=== PATIENT | male | born 1960 | race Caucasian/White ===

== ENCOUNTER 2016-12-16 15:51 | Emergency (ER) | payer MEDICAID ==
[~2016-12-16] VITALS: Ht 185.4 cm; Wt 208.7 kg
[~2016-12-16 15:51] MED LIST: ALLA266C2 TP; AMMO385C4 TP; BISM525O10 PO; BLOO-129 IN; BUPR300T54 PO; INSU100V7 SQ; LISI10TA5 PO; METF10002 PO; METO-304 PO; Pantoprazole Sodium PO; RIFA300C4 PO; SILV25CR5 TP; SITA100T PO; [UNRECOGNIZED DRUG - CODE] PO
[2016-12-16] MEDS ORDERED: ASPI81TA2 PO (17:29)
[2016-12-16] MEDS ORDERED: METF500T4 PO (17:29)
[2016-12-16] MEDS ORDERED: LORA10TA7 PO (17:29)
[2016-12-16] MEDS ORDERED: LISI40TA4 PO (17:29)
[2016-12-16] MEDS ORDERED: APIX5TAB PO (17:29)
[2016-12-16] MEDS ORDERED: LIRA0.6P SQ (17:29)
[2016-12-16] MEDS ORDERED: METO-302 PO (17:29)
[2016-12-16] MEDS ORDERED: EMPA25TA PO (17:30)
[2016-12-16 18:45] VITALS: BP 142/86
== END 2016-12-16 18:49 | disposition home or self-care (01) ==
LOC: ER 15:54
DX: R60.0 Localized edema (principal); E66.01 Morbid (severe) obesity due to excess calories; I10 Essential (primary) hypertension; E11.9 Type 2 diabetes mellitus without complications
CPT/HCPCS: 93970-TC; A4606; Z7610

== ENCOUNTER 2017-11-13 16:26 | Inpatient (IN) | payer MEDICAID ==
[~2017-11-13] VITALS: Ht 188 cm; Wt 224.5 kg
[~2017-11-13 16:26] MED LIST changes: -ALLA266C2 TP; -AMMO385C4 TP; +APIX5TAB PO; +ASPI-1169 PO; -BISM525O10 PO; +EMPA25TA PO; +LIRA0.6P SQ; -LISI10TA5 PO; +LISI40TA4 PO; +LORA10TA7 PO; -METF10002 PO; +METF500T4 PO; -METO-304 PO; +METO-356 PO; -Pantoprazole Sodium PO; -RIFA300C4 PO; -SILV25CR5 TP; -SITA100T PO; -[UNRECOGNIZED DRUG - CODE] PO
[2017-11-13 17:00] LABS: BASOPHILS # (AUTO) 0.1 /CMM (0.0-0.2); BASOPHILS % (AUTO) 0.9 % (0.0-2.0); EOSINOPHILS # (AUTO) 0.4 /CMM (0.0-0.7); EOSINOPHILS % (AUTO) 3.5 % (0.0-6.0); HEMATOCRIT 34 % (39-51); HEMOGLOBIN 10.8 g/dL (13.5-17.5); LYMPHOCYTES # (AUTO) 1.8 /CMM (0.8-4.8); MEAN CORPUSCULAR HEMOGLOBIN 25 PG (26.0-33.0); MEAN CORPUSCULAR HGB CONC 32 g/dl (31.0-36.0); MEAN CORPUSCULAR VOLUME 79 fL (80-96); MONOCYTES # (AUTO) 1.5 /CMM (0.1-1.30); MONOCYTES % (AUTO) 12.2 % (2.0-12.0); NEUTROPHILS # (AUTO) 8.7 /CMM (1.8-8.9); NEUTROPHILS % (AUTO) 69.4 % (43.0-81.0); PLATELET COUNT (AUTO) 388 /CMM (150-450); RDW COEFFICIENT OF VARIATION 16.3 (11.5-15.0); RED BLOOD CELL COUNT(AUTO) 4.27 MIL/uL (4.5-6.0); WHITE BLOOD COUNT (AUTO) 12.5 K/uL (4.3-11.0)
[2017-11-13] MEDS ORDERED: VANCOMYCIN 1 GM in IV D5W 250 ML IV ONE (17:00)
--- NOTE | 2017-11-13 17:06 | NUR ---
PT REC'D TO ER C/O ARTI LEGS CELLUITIS AND OOZING BOTTOM OF FEET RED AND SWOLLEN PT WEIGHS 508 LBS. HX OF PICC LINE FOR ANTBX. EKG DONE AND IV STARTED 20G RT HAND LABS DRAWN SENT TO LAB CULTURES DONE .
--- NOTE | 2017-11-13 17:08 | NUR ---
PT GIVEN VANCO 1 GM IVPB PER MD ORDER. FAMILY AT BEDSIDE AWAITING EVALUATION BY ER PROVIDER.
--- NOTE | 2017-11-13 17:09 | NUR ---
CHEST XRAY DONE
[2017-11-13 17:13] LABS: POTASSIUM 4.6 mmol/L (3.5-5.1)
[2017-11-13 17:16] LABS: INR 1.16 (0.87-1.13)
[2017-11-13 17:20] LABS: TROPONIN I 0.021 ng/mL (0.00-0.056)
[2017-11-13 17:25] LABS: ALBUMIN 2.9 g/dL (3.4-5.0); BILIRUBIN,DIRECT 0.1 mg/dL (0.0-0.2); BILIRUBIN,TOTAL 0.5 mg/dL (0.2-1.0); TOTAL PROTEIN, SERUM 7.4 g/dL (6.4-8.2)
--- NOTE | 2017-11-13 17:29 | NUR ---
LACTIC ACID 2.4 NOTIFIED
--- NOTE | 2017-11-13 17:39 | NUR ---
[facility]
[2017-11-13] MEDS ORDERED: OMEP20TA5 PO (18:12)
[2017-11-13] MEDS ORDERED: AMLO5TAB2 PO (18:12)
[2017-11-13] MEDS ORDERED: DIGO125T PO (18:12)
[2017-11-13] MEDS ORDERED: PANTOPRAZOLE 40 MG TABLET.DR PO ONE ×2 (18:30→23:18)
[2017-11-13] MEDS ORDERED: FUROSEMIDE 20 MG/2 ML VIAL IV ONE (18:30)
--- NOTE | 2017-11-13 18:41 | NUR ---
PT GIVEN LASIX 20 MG IVP PER MD
[2017-11-13] MEDS ORDERED: FUROSEMIDE 20 MG/2 ML VIAL ONE (18:42)
--- NOTE | 2017-11-13 18:48 | NUR ---
ADMITTING MD AT BEDSIDE
[2017-11-13] MEDS ORDERED: DEXTROSE 50%-WATER 50 ML DISP.SYRIN IV PRN (19:00)
[2017-11-13] MEDS ORDERED: NITROGLYCERIN 0.4 MG/TAB BOTTLE SL PRN (19:00)
--- NOTE | 2017-11-13 19:11 | NUR ---
REPORT RECIEVED FROM ISAURO DAMICO FOR CANDICE.
[2017-11-13 19:25] LABS: APPEARANCE,URINE Clear (CLEAR); BILIRUBIN,URINE Negative (NEGATIVE); BLOOD, URINE Trace-intact Ery/uL (NEGATIVE); COLOR,URINE Yellow (YELLOW); KETONES,URINE Negative (NEGATIVE); LEUKOCYTE ESTERASE ,URINE Small (NEGATIVE); NITRITE, URINE Negative (NEGATIVE); PH,URINE 5.5 (5.0-8.0); PROTEIN,URINE 30 mg/dl (NEGATIVE); UGLUCOSE Negative (NEGATIVE); UROBILINOGEN,URINE 0.2 EU/dL (0.2)
[2017-11-13] MEDS ORDERED: IBUPROFEN 600 MG TABLET PO ONE ×2 (19:30→19:47)
[2017-11-13 19:46] LABS: BACTERIA,URINE Few /HPF (None Seen); SQUAMOUS EPITHELIAL CELL,UR None Seen /HPF (None Seen)
--- NOTE | 2017-11-13 20:32 | NUR ---
REPORT CALLED TO ISAURO ELDRIDGE IN [place] FOR CANDICE. PT GOING TO [facility] 112-2.
[2017-11-13 21:00] VITALS: BP 150/78
--- NOTE | 2017-11-13 21:06 | NUR ---
PT TRANSPORTED TO [facility] 112-1 VIA STRETCHER WITH RN, ACLS PROTOCOL. VSS.
[2017-11-13] MEDS: BLOOD SUGAR DIAGNOSTIC 1 EACH STRIP VI SCH (22:00)
[2017-11-13] MEDS: *INSULIN REGULAR(HUMULIN R)HUM 100 UNIT/ML VIAL SQ PRN (23:32)
--- NOTE | 2017-11-13 23:39 | NUR ---
SPOKE TO MD DICKINSON , PT REQUESTED MOTRIN FOR PAIN , WITH NEW ORDER OF MOTRIN 600 MG PO Q6HRS PRN
[2017-11-14] VITALS: BP 111/50
[2017-11-14] MEDS ORDERED: IBUPROFEN 600 MG TABLET PO ONE (01:36)
[2017-11-14] MEDS: IBUPROFEN 600 MG TABLET PO PRN (01:54)
[2017-11-14 04:00] VITALS: BP 115/65
--- NOTE | 2017-11-14 07:05 | NUR ---
RN INITIAL NOTE PATIENT RECEIVED IN BED, AWAKE, ALERT AND ORIENTED. ABLE TO MAKE NEEDS KNOWN. AFIB ON TELE MONITOR, HR: 103. NO S/S OF PAIN OR DISCOMFORT. RESPIRATIONS ARE EVEN AND UNLABORED. NO S/S OF RESPIRATORY DISTRESS OR SOB. SATING WELL. SKIN IS WARM AND DRY TO TOUCH. IV SITE FLUSHED, PATENT SAFETY PRECAUTIONS IMPLEMENTED. BED IN LOCKED, LOW POSITION WITH TWO SIDE RAILS UP. CALL LIGHT AND BELONGINGS WITHIN EASY REACH. WILL CONTINUE TO MONITOR.
[2017-11-14 08:00] VITALS: BP 113/62
[2017-11-14] MEDS: BLOOD SUGAR DIAGNOSTIC 1 EACH STRIP VI SCH ×4 (08:02→21:28)
[2017-11-14] MEDS ORDERED: DIGOXIN 0.125 MG TABLET PO SCH ×2 (09:00→13:00)
[2017-11-14] MEDS ORDERED: LISINOPRIL (20MG) 20 MG TABLET PO SCH (09:00)
[2017-11-14] MEDS: METOPROLOL SUCCINATE 25 MG TAB.SR.24H PO SCH ×2 (09:19→17:40)
[2017-11-14] MEDS: AMLODIPINE BESYLATE 5 MG TABLET PO SCH (09:20)
[2017-11-14] MEDS: FUROSEMIDE 40 MG/4 ML VIAL IV SCH ×2 (09:20→17:31)
[2017-11-14] MEDS: LORATADINE 10 MG TABLET PO SCH (09:20)
[2017-11-14] MEDS: BUPROPION XL 150 MG TAB.ER.24 PO SCH (09:21)
[2017-11-14] MEDS ORDERED: APIXABAN 5 MG TABLET PO ONE (09:30)
[2017-11-14] MEDS ORDERED: FEE PK DOSING 1 MIN EA MC ONE (10:57)
[2017-11-14 11:53] LABS: BASOPHILS # (AUTO) 0.1 /CMM (0.0-0.2); BASOPHILS % (AUTO) 0.6 % (0.0-2.0); EOSINOPHILS # (AUTO) 0.4 /CMM (0.0-0.7); EOSINOPHILS % (AUTO) 3.4 % (0.0-6.0); HEMATOCRIT 36 % (39-51); HEMOGLOBIN 10.7 g/dL (13.5-17.5); LYMPHOCYTES # (AUTO) 1.8 /CMM (0.8-4.8); LYMPHOCYTES % (AUTO) 16.2 % (20.0-44.0); MEAN CORPUSCULAR HEMOGLOBIN 26 PG (26.0-33.0); MEAN CORPUSCULAR HGB CONC 30 g/dl (31.0-36.0); MEAN CORPUSCULAR VOLUME 85 fL (80-96); MONOCYTES # (AUTO) 1.3 /CMM (0.1-1.30); MONOCYTES % (AUTO) 12.1 % (2.0-12.0); NEUTROPHILS # (AUTO) 7.5 /CMM (1.8-8.9); NEUTROPHILS % (AUTO) 67.7 % (43.0-81.0); PLATELET COUNT (AUTO) 368 /CMM (150-450); RDW COEFFICIENT OF VARIATION 17.2 (11.5-15.0); RED BLOOD CELL COUNT(AUTO) 4.18 MIL/uL (4.5-6.0)
[2017-11-14 12:00] VITALS: BP 103/53
[2017-11-14] MEDS ORDERED: VANCOMYCIN IV SCH (12:00)
[2017-11-14] MEDS ORDERED: DEXTROSE 50% IV SCH (12:00)
[2017-11-14] MEDS ORDERED: WATER IV SCH (12:00)
[2017-11-14] MEDS: VANCOMYCIN 2 GM in IV D5W 500 ML IV SCH (14:56)
[2017-11-14] MEDS: INSULIN REGULAR, HUMAN 100 UNIT/ML 3 ML VIAL SQ PRN ×2 (14:57→17:44)
[2017-11-14 16:00] VITALS: BP 106/56
[2017-11-14] MEDS: APIXABAN 5 MG TABLET PO SCH (17:41)
[2017-11-14] MEDS: HYDROCODONE/APAP 5/325MG 1 EACH TABLET PO PRN (19:02)
[2017-11-14 20:00] VITALS: BP 118/61
--- NOTE | 2017-11-14 20:08 | NUR ---
PT COMPLAINED OF ITCHINESS IN BILATERAL LOWER EXTREMITIES, REQUESTING CAILIN, MD DICKINSON WITH NEW ORDER TO GIVE BENADRYL 25 MG PO Q 6HRS PRN.
[2017-11-14] MEDS: diphenhydrAMINE HCL 25 MG CAPSULE PO PRN (20:17)
[2017-11-14] MEDS ORDERED: PANTOPRAZOLE 40 MG VIAL IV SCH (20:30)
[2017-11-14] MEDS: *INSULIN REGULAR(HUMULIN R)HUM 100 UNIT/ML VIAL SQ PRN (21:30)
[2017-11-15] VITALS: BP 121/60
[2017-11-15] MEDS: VANCOMYCIN 2 GM in IV D5W 500 ML IV SCH (00:47)
[2017-11-15 04:00] VITALS: BP 128/75
--- NOTE | 2017-11-15 05:15 | NUR ---
PT NOTED ON TELE MONITOR WITH 3.6 SEC LONG PAUSE. MD DICKINSON MADE AWARE, WITH NEW ORDER FOR CARDIO CONSULT WITH MD TAYLOR IN AM, D/C BP MEDS, KEEP ATROPINE AT BEDSIDE, APPLY PACER PADS ON.
[2017-11-15] MEDS ORDERED: ATROPINE SULFATE 1 MG/10 ML DISP.SYRIN IV ONE (05:30)
[2017-11-15 07:12] LABS: BASOPHILS # (AUTO) 0.1 /CMM (0.0-0.2); BASOPHILS % (AUTO) 0.5 % (0.0-2.0); EOSINOPHILS # (AUTO) 0.5 /CMM (0.0-0.7); EOSINOPHILS % (AUTO) 4.1 % (0.0-6.0); HEMATOCRIT 34 % (39-51); HEMOGLOBIN 10.9 g/dL (13.5-17.5); LYMPHOCYTES # (AUTO) 1.9 /CMM (0.8-4.8); LYMPHOCYTES % (AUTO) 16.6 % (20.0-44.0); MEAN CORPUSCULAR HEMOGLOBIN 26 PG (26.0-33.0); MEAN CORPUSCULAR HGB CONC 32 g/dl (31.0-36.0); MEAN CORPUSCULAR VOLUME 80 fL (80-96); MONOCYTES # (AUTO) 1.5 /CMM (0.1-1.30); MONOCYTES % (AUTO) 12.8 % (2.0-12.0); NEUTROPHILS # (AUTO) 7.5 /CMM (1.8-8.9); PLATELET COUNT (AUTO) 364 /CMM (150-450); RDW COEFFICIENT OF VARIATION 17.9 (11.5-15.0); RED BLOOD CELL COUNT(AUTO) 4.21 MIL/uL (4.5-6.0); WHITE BLOOD COUNT (AUTO) 11.4 K/uL (4.3-11.0)
[2017-11-15 07:20] LABS: CALCIUM, SERUM 8.9 mg/dL (8.5-10.1); CREATININE 1.2 mg/dL (0.6-1.3); MAGNESIUM 1.6 mg/dL (1.8-2.4); PHOSPHORUS 3.7 mg/dL (2.5-4.9); POTASSIUM 4.4 mmol/L (3.5-5.1)
--- NOTE | 2017-11-15 07:30 | NUR ---
[place] RN INITIAL NOTES RECEIVED PATIENT AWAKE ON BED, AOX3, NO SIGNS OF DISTRESS, ON TELE MONITOR AFIB 78HR, AMBULATORY PATIENT, SKIN ISSUES BILATERAL WEEPING LEGS WITH CELLULITES, IV R HAND 20G, SL, CLEAN AND PATENT, 3.6 SEC PAUSE ON MONITOR AT NIGHT, ATROPINE AND CRASH CART WITHIN REACH, BED IN LOW AND LOCKED POSITION CALL LIGHT WITHIN REACH, WILL CONTINUE TO MONITOR.
[2017-11-15 08:00] VITALS: BP 126/63
[2017-11-15] MEDS: BLOOD SUGAR DIAGNOSTIC 1 EACH STRIP VI SCH ×4 (08:08→21:45)
[2017-11-15] MEDS: FUROSEMIDE 40 MG/4 ML VIAL IV SCH ×2 (08:15→17:10)
[2017-11-15] MEDS: LORATADINE 10 MG TABLET PO SCH (08:15)
[2017-11-15] MEDS: MULTIVITAMINS,THERAGRAN 1 UDTAB TABLET PO SCH (08:15)
[2017-11-15] MEDS: BUPROPION XL 150 MG TAB.ER.24 PO SCH (08:15)
[2017-11-15] MEDS: ASCORBIC ACID 500 MG TABLET PO SCH (08:15)
[2017-11-15] MEDS: INSULIN REGULAR, HUMAN 100 UNIT/ML 3 ML VIAL SQ PRN ×3 (08:27→17:23)
[2017-11-15] MEDS: AMLODIPINE BESYLATE 5 MG TABLET PO SCH (09:00)
--- NOTE | 2017-11-15 09:00 | NUR ---
[place] RN NOTES BP MED HELD DUE TO BP GOING UP AND DOWN AND PAUSE ON TELE MONITOR DURING CANT GANG SAWYER.
[2017-11-15] MEDS ORDERED: CEFAZOLIN 1 GM VIAL IM SCH (10:00)
[2017-11-15] MEDS: APIXABAN 5 MG TABLET PO SCH ×2 (10:08→17:10)
--- NOTE | 2017-11-15 10:13 | NUR ---
WOUND CARE CONSULT: LIMITED ASSESSMENT TODAY DUE TO PT ONLY ALLOWING ASSESSMENT OF LOWER LEGS AND LEFT GROIN REDNESS. PT WEARING CLOTHING AND REFUSING GOWN. RECOMMEND DPM CONSULT WHICH WAS CALLED TO WOUND CLINIC PER MD. RECOMMEND BARIATRIC BED. ALL SKIN PROTECTION MEASURES IN PLACE AND DISCUSSED WITH NURSING STAFF. PT DOES GET UP TO CHAIR AND IS CONTINENT. WILL SEE PRN. MD IN AGREEMENT WITH PLAN OF CARE.
[2017-11-15] MEDS: Magnesium 1GM/D5W 100ML PREMIX 100 ML IV SCH ×2 (11:31→13:23)
[2017-11-15 12:00] VITALS: BP 117/60
[2017-11-15] MEDS: CLOTRIMAZOLE/BETAMETASONE DIPROPIONATE 15 GM TUBE TP SCH ×2 (12:23→17:10)
[2017-11-15] MEDS: CEFAZOLIN 2 GM in IV D5W 50 ML IV SCH ×2 (13:23→21:45)
[2017-11-15] MEDS ORDERED: LIDOCAINE 5% OINT 35.44 GM TUBE TP PRN (13:30)
[2017-11-15] MEDS: HYDROCODONE/APAP 5/325MG 1 EACH TABLET PO PRN ×2 (13:37→20:20)
[2017-11-15 16:00] VITALS: BP 131/61
[2017-11-15] MEDS: diphenhydrAMINE HCL 25 MG CAPSULE PO PRN (16:51)
--- NOTE | 2017-11-15 19:00 | NUR ---
[place] RN NOTES PATIENT SITTING IN CHAIR, ALL NEEDS ATTENDED TO, AT BEDSIDE, NO SIGNS OF DISTRESS, WILL ENDORSE TO ACTIVITY THERAPY SPECIALIST FOR CONTINUITY OF CARE
--- NOTE | 2017-11-15 19:30 | NUR ---
RN NOTES RECEIVED PATIENT IN BED, AWAKE, ALERT AND ORIENTED X4, ABLE TO VERBALIZE NEEDS, FAMILY MEMBER AT BEDSIDE. BREATHING IS EVEN AND UNLABORED, TOLERATING ROOM AIR WELL, FREE FROM ANY S/S OF RESPIRATORY DISTRESS. ON TELEMETRY MONITORING, REVEALING AFIB, CONTROLLED RATE, 82BPM AT THIS TIME. R HAND IV FLUSHED WITH NS, PATENT AND INTACT, FREE FROM ANY S/S OF INFILTRATION OR PHLEBITIS. PLAN OF CARE DISCUSSED WITH THE PATIENT, WHO VERBALIZES UNDERSTANDING, INCLUDING NOCTURNAL BIPAP. CALL LIGHT LEFT WITHIN EASY REACH, BED IN LOWEST AND LOCKED POSITION. WILL CONTINUE TO CLOSELY MONITOR
[2017-11-15 20:00] VITALS: BP 118/46
[2017-11-15] MEDS: *INSULIN REGULAR(HUMULIN R)HUM 100 UNIT/ML VIAL SQ PRN (21:52)
[2017-11-16] VITALS: BP 122/54
[2017-11-16 04:00] VITALS: BP 118/49
[2017-11-16] MEDS: CEFAZOLIN 2 GM in IV D5W 50 ML IV SCH ×3 (05:29→20:25)
[2017-11-16 06:46] LABS: BASOPHILS # (AUTO) 0.1 /CMM (0.0-0.2); BASOPHILS % (AUTO) 0.8 % (0.0-2.0); EOSINOPHILS # (AUTO) 0.5 /CMM (0.0-0.7); EOSINOPHILS % (AUTO) 4.6 % (0.0-6.0); HEMATOCRIT 33 % (39-51); HEMOGLOBIN 10.7 g/dL (13.5-17.5); LYMPHOCYTES # (AUTO) 2.1 /CMM (0.8-4.8); LYMPHOCYTES % (AUTO) 20.1 % (20.0-44.0); MEAN CORPUSCULAR HEMOGLOBIN 26 PG (26.0-33.0); MEAN CORPUSCULAR HGB CONC 32 g/dl (31.0-36.0); MEAN CORPUSCULAR VOLUME 81 fL (80-96); MONOCYTES # (AUTO) 1.3 /CMM (0.1-1.30); MONOCYTES % (AUTO) 12.6 % (2.0-12.0); NEUTROPHILS # (AUTO) 6.5 /CMM (1.8-8.9); NEUTROPHILS % (AUTO) 61.9 % (43.0-81.0); PLATELET COUNT (AUTO) 349 /CMM (150-450); RDW COEFFICIENT OF VARIATION 17.5 (11.5-15.0); RED BLOOD CELL COUNT(AUTO) 4.12 MIL/uL (4.5-6.0); WHITE BLOOD COUNT (AUTO) 10.5 K/uL (4.3-11.0)
[2017-11-16 07:02] LABS: CREATININE 1.1 mg/dL (0.6-1.3); PHOSPHORUS 4.6 mg/dL (2.5-4.9); POTASSIUM 4.3 mmol/L (3.5-5.1)
--- NOTE | 2017-11-16 07:30 | NUR ---
[place] RN INITIAL NOTES- RECEIVED PATIENT SITTING AWAKE IN BED, AOX3, NO SIGNS OF DISTRESS, ON TELE MONITOR AFIB 78 HR, AMBULATORY PATIENT, SKIN ISSUES BILATERAL WEEPING LEGS WITH CELLULITES, IV R HAND 20G, SL, CLEAN AND PATENT, BED IN LOW AND LOCKED POSITION CALL LIGHT WITHIN REACH, WILL CONTINUE TO MONITOR.
--- NOTE | 2017-11-16 07:42 | NUR ---
PATIENT RECEIVED OFF NOC CPAP. PATIENT AWAKE/ALERT. PLACED PATIENT ON 28% NASAL CANNULA. PATIENT REMOVES AT OWN DISCRETION. NO SOB NOTED.
[2017-11-16] MEDS: BLOOD SUGAR DIAGNOSTIC 1 EACH STRIP VI SCH ×4 (07:44→22:43)
[2017-11-16 08:00] VITALS: BP 111/64
[2017-11-16] MEDS: DAKINS QUARTER STRENGTH (0.125%) 480 ML BOTTLE TOP SCH (08:32)
[2017-11-16] MEDS: CLOTRIMAZOLE/BETAMETASONE DIPROPIONATE 15 GM TUBE TP SCH ×2 (08:33→16:35)
[2017-11-16] MEDS: FUROSEMIDE 40 MG/4 ML VIAL IV SCH ×2 (08:34→17:00)
[2017-11-16] MEDS: APIXABAN 5 MG TABLET PO SCH ×2 (08:34→16:34)
[2017-11-16] MEDS: MULTIVITAMINS,THERAGRAN 1 UDTAB TABLET PO SCH (08:34)
[2017-11-16] MEDS: AMLODIPINE BESYLATE 5 MG TABLET PO SCH (08:34)
[2017-11-16] MEDS: ASCORBIC ACID 500 MG TABLET PO SCH (08:34)
[2017-11-16] MEDS: LORATADINE 10 MG TABLET PO SCH (08:34)
[2017-11-16] MEDS: BUPROPION XL 150 MG TAB.ER.24 PO SCH (08:34)
[2017-11-16] MEDS: IBUPROFEN 600 MG TABLET PO PRN ×2 (08:38→20:25)
[2017-11-16 10:40] LABS: EOSINOPHILS % (MANUAL) 6 % (0-4); LYMPHOCYTES % (MANUAL) 14 % (16-48); MONOCYTES % (MANUAL) 8 % (0-11.0); NEUTROPHILS % (MANUAL) 72 (42-76)
[2017-11-16] MEDS: INSULIN REGULAR, HUMAN 100 UNIT/ML 3 ML VIAL SQ PRN ×2 (11:40→16:55)
[2017-11-16 12:00] VITALS: BP 113/71
[2017-11-16] MEDS ORDERED: AMOX875T2 PO (13:15)
[2017-11-16] MEDS ORDERED: FURO40TA5 PO (13:21)
[2017-11-16] MEDS ORDERED: CPAP INH (14:07)
[2017-11-16 16:00] VITALS: BP_SYST 113; BP_DIAS 67; BP_DIAS 71
--- NOTE | 2017-11-16 18:30 | NUR ---
BRUSHER OPERATOR NOTES DC ORDERS GIVEN, UNABLE TO DISCHARGE DUE CASE MANAGEMENT STILL IN THE PROCESS OF ARRANGING CPAP MACHINE FOR PATIENT. PATIENT TO STAY EXTRA NIGHT.
--- NOTE | 2017-11-16 18:52 | NUR ---
HEEL COVERER END NOTES PATIENT RESTING IN BED, NO SIGNS OF DISTRESS, ALL NEEDS MET, WOUND CARE DONE, WILL ENDORSE TO LEGAL RESEARCH ANALYST.
--- NOTE | 2017-11-16 19:30 | NUR ---
NATURAL REMEDY CONSULTANT INITIAL NOTE PT RECEIVED SITTING UP IN CHAIR WITH AT BEDSIDE. A/O X4 AND ABLE TO MAKE NEEDS KNOWN. ON ROOM AIR AND BREATHING EVEN, REGULAR AND UNLABORED. NO S/SX OF RESPIRATORY DISTRESS NOTED. IV R HAND IN PLACE, PATENT, CLEAN AND FLUSHING WELL. TELE- AFIB CONTROLLED 79. CALL LIGHT WITHIN REACH. WILL CONTINUE TO MONITOR.
[2017-11-16 20:00] VITALS: BP 104/72
[2017-11-16] MEDS: diphenhydrAMINE HCL 25 MG CAPSULE PO PRN (20:25)
[2017-11-16] MEDS: *INSULIN REGULAR(HUMULIN R)HUM 100 UNIT/ML VIAL SQ PRN (22:48)
[2017-11-17] VITALS: BP 132/73
[2017-11-17 04:00] VITALS: BP 117/62
[2017-11-17] MEDS: CEFAZOLIN 2 GM in IV D5W 50 ML IV SCH ×3 (05:41→20:54)
[2017-11-17 06:50] LABS: CALCIUM, SERUM 8.6 mg/dL (8.5-10.1); POTASSIUM 4.2 mmol/L (3.5-5.1)
[2017-11-17] MEDS: BLOOD SUGAR DIAGNOSTIC 1 EACH STRIP VI SCH ×3 (07:30→18:15)
--- NOTE | 2017-11-17 07:56 | NUR ---
DIRECTOR VIDEO CLOSING NOTE PT REMAINED STABLE DURING SHIFT. NO ACUTE DISTRESS NOTED. SITTING ON CHAIR NEXT TO BED. NO C/O DISCOMFORT AT THIS TIME. ALL NEEDS ATTENDED TO PROMPTLY. ALL DUE MEDS GIVEN ORDERED AND WELL TOLERATED. CALL LIGHT WITHIN REACH. WILL ENDORSE TO NEXT SHIFT FOR CONTINUITY OF CARE.
[2017-11-17 08:00] VITALS: BP 123/59
--- NOTE | 2017-11-17 08:05 | NUR ---
RN NOTES PATIENT ALERT AND ORIENTED X4, NO RESPIRATORY DISTRESS NOTED, C/O LEG PAIN AND REQUESTING FOR IBUPROFEN. PLAN OF CARE DISCUSSED WITH PATIENT, WAITING FOR DR. NIELSON'S CONSULT AND PATIENT MAY BE DISCHARGED AFTER. CALL LIGHT WITHIN REACH, WILL CONTINUE TO MONITOR.
[2017-11-17] MEDS: INSULIN REGULAR, HUMAN 100 UNIT/ML 3 ML VIAL SQ PRN ×3 (08:44→18:20)
[2017-11-17] MEDS: IBUPROFEN 600 MG TABLET PO PRN ×2 (08:45→16:59)
[2017-11-17] MEDS: ASCORBIC ACID 500 MG TABLET PO SCH (08:45)
[2017-11-17] MEDS: FUROSEMIDE 40 MG/4 ML VIAL IV SCH ×2 (08:45→16:57)
[2017-11-17] MEDS: MULTIVITAMINS,THERAGRAN 1 UDTAB TABLET PO SCH (08:45)
[2017-11-17] MEDS: AMLODIPINE BESYLATE 5 MG TABLET PO SCH (08:45)
[2017-11-17] MEDS: BUPROPION XL 150 MG TAB.ER.24 PO SCH (08:45)
[2017-11-17] MEDS: LORATADINE 10 MG TABLET PO SCH (08:45)
[2017-11-17] MEDS: APIXABAN 5 MG TABLET PO SCH ×2 (08:46→16:57)
[2017-11-17] MEDS: DAKINS QUARTER STRENGTH (0.125%) 480 ML BOTTLE TOP SCH (08:52)
[2017-11-17] MEDS: CLOTRIMAZOLE/BETAMETASONE DIPROPIONATE 15 GM TUBE TP SCH ×2 (08:52→16:57)
[2017-11-17 12:03] VITALS: BP 101/55
[2017-11-17 16:00] VITALS: BP 103/63
[2017-11-17] MEDS ORDERED: AMLO5TAB2 PO (16:05)
[2017-11-17] MEDS ORDERED: LORA10TA7 PO (16:05)
[2017-11-17] MEDS ORDERED: APIX5TAB PO (16:05)
[2017-11-17] MEDS ORDERED: INSU100V7 SQ (16:05)
[2017-11-17] MEDS ORDERED: METF500T4 PO (16:05)
[2017-11-17] MEDS ORDERED: BUPR300T54 PO (16:05)
[2017-11-17] MEDS ORDERED: LISI40TA4 PO (16:05)
[2017-11-17] MEDS ORDERED: METO-356 PO (16:05)
[2017-11-17] MEDS ORDERED: EMPA25TA PO (16:05)
--- NOTE | 2017-11-17 19:15 | NUR ---
RN NOTES PATIENT ALERT AND ORIENTED X3, BREATHING EVEN AND UNLABORED, NO SOB NOTED, AMBULATE INDEPENDENTLY, NEEDS ATTENDED AND MET, PATIENT IS READY FOR DISCHARGE TO HOME, DISCHARGE INSTRUCTIONS GIVEN AND PATIENT VERBALIZED UNDERSTANDING, PAPERWORKS SIGNED. SKIN ASSESSMENT COMPLETED, PHOTOS WERE TAKEN YESTERDAY, PER PATIENT, "I DON'T WANT ANYMORE PICTURES, JUST USE THE ONE FROM YESTERDAY." WOUND TREATMENT RENDERED, SKIN CARE RENDERED, BELONGINGS RECONCILED AND COMPLETE, PRESCRIPTIONS WILL BE SENT ELECTRONICALLY TO PHARMACY PIV REMOVED PER PATIENT'S REQUEST, STILL WAITING FOR FOR ACID EXTRACTOR. ENDORSED TO WARP KNITTER HELPER FOR [place].
--- NOTE | 2017-11-17 21:00 | NUR ---
RN/MS NOTES: RECEIVED PT. REPORT FROM AM NURSE. PT. WAITING TO BE DISCHARGED WAITING FOR HIS . NO IV LINE. CAME AT ABOUT 2049. PT. LEFT VIA W/C IN STABLE CONDITION AT 9 P.M. W/ AND BELONGINGS.
== END 2017-11-17 20:55 | disposition home or self-care (01) | DRG 201 ==
LOC: ER 16:28 → TELE 19:45 → TELE-TD 20:25 → TELE1 11-16 10:42 → MEDSG1 11-16 15:51 → TELE1 11-16 20:20
PROVIDERS: ADMIT Internal Medicine; ATTEND Internal Medicine
DX: I48.91 Unspecified atrial fibrillation (principal); I50.33 Acute on chronic diastolic (congestive) heart failure; E11.622 Type 2 diabetes mellitus with other skin ulcer; E87.2 Acidosis; L03.115 Cellulitis of right lower limb; E11.65 Type 2 diabetes mellitus with hyperglycemia; I49.5 Sick sinus syndrome; E83.42 Hypomagnesemia; L03.116 Cellulitis of left lower limb; I11.0 Hypertensive heart disease with heart failure; E78.5 Hyperlipidemia, unspecified; Z79.4 Long term (current) use of insulin; Z79.82 Long term (current) use of aspirin; Z79.84 Long term (current) use of oral hypoglycemic drugs; Z79.899 Other long term (current) drug therapy; Z87.442 Personal history of urinary calculi; Z83.3 Family history of diabetes mellitus; Z82.49 Family history of ischemic heart disease and other diseases of the circulatory system; Z80.42 Family history of malignant neoplasm of prostate; Z80.3 Family history of malignant neoplasm of breast; Z79.01 Long term (current) use of anticoagulants; L97.909 Non-pressure chronic ulcer of unspecified part of unspecified lower leg with unspecified severity; I87.8 Other specified disorders of veins; I89.0 Lymphedema, not elsewhere classified; I50.32 Chronic diastolic (congestive) heart failure; E66.2 Morbid (severe) obesity with alveolar hypoventilation; M72.2 Plantar fascial fibromatosis; G47.33 Obstructive sleep apnea (adult) (pediatric); D64.9 Anemia, unspecified; Z68.44 Body mass index [BMI] 60.0-69.9, adult
CPT/HCPCS: 36415; 71045-TC; 80048-TC; 80076-TC; 80162-TC; 80202-TC; 81000-TC; 82728-TC; 82746; 82962-TC; 83540-TC; 83605-TC; 83735-TC; 83880; 84100-TC; 84484-TC; 85025-TC; 85730-TC; 87040-TC; 87081-TC; 87086-TC; 93307-TC; A4606; A6253; A6402; A6403; J0690; J1815; J1940; J3370; J3475; J3490; J7030; J7050; J7060; Q0163; Z7610

== ENCOUNTER 2017-11-27 15:49 | Emergency (ER) | payer MEDICAID ==
[~2017-11-27] VITALS: Ht 188 cm; Wt 213.2 kg
[~2017-11-27 15:49] MED LIST changes: +AMLO5TAB2 PO; +AMOX875T2 PO; -ASPI-1169 PO; +CPAP INH; +FURO40TA5 PO; -LIRA0.6P SQ; +OMEP20TA5 PO
[2017-11-27 16:23] VITALS: BP 129/75
--- NOTE | 2017-11-27 18:04 | NUR ---
WOUND CARE PROVIDED. PT D/C STABLE CONDITION.
== END 2017-11-27 18:06 | disposition home or self-care (01) ==
LOC: ER 15:56
DX: L03.115 Cellulitis of right lower limb (principal); L03.116 Cellulitis of left lower limb; E11.9 Type 2 diabetes mellitus without complications; I11.0 Hypertensive heart disease with heart failure; I50.9 Heart failure, unspecified; I48.91 Unspecified atrial fibrillation; Z79.01 Long term (current) use of anticoagulants; Z79.4 Long term (current) use of insulin
CPT/HCPCS: A4606; Z7610